=== PATIENT | female | born 2000 | race Caucasian/White ===

== ENCOUNTER 2022-11-03 18:40 | Emergency (ER) | payer BC ==
[2022-11-03] MEDS ORDERED: Ketorolac 60 MG/2 ML SDV IM ONE (18:54)
== END 2022-11-03 19:40 | disposition home or self-care (01) ==
LOC: LB.ED 18:40
DX: S86.911A Strain of unspecified muscle(s) and tendon(s) at lower leg level, right leg, initial encounter (principal); W18.30XA Fall on same level, unspecified, initial encounter; Y93.64 Activity, baseball
CPT/HCPCS: 73560-RT; 96372; 99283; J1885

== ENCOUNTER 2024-01-15 17:04 | Emergency (ER) | payer BC ==
[2024-01-15] MEDS ORDERED: Doxycycline 100 MG Cap ONE (18:00)
[2024-01-15 18:06] LABS: INFLUENZA A NAA NEGATIVE (NEGATIVE); INFLUENZA B NAA NEGATIVE (NEGATIVE); RESPIRATORY SYNCYTIAL VIR NAA NEGATIVE (NEGATIVE)
[2024-01-15 18:07] LABS: CORONAVIRUS COVID-19 NAA NEGATIVE (NEGATIVE)
[2024-01-15] MEDS: Doxycycline 100 MG Cap PO SCH (18:24)
== END 2024-01-15 18:25 | disposition home or self-care (01) ==
LOC: LB.ED 17:04
DX: J02.9 Acute pharyngitis, unspecified (principal); Z79.899 Other long term (current) drug therapy
CPT/HCPCS: 0241U; 87651-QW; 99283; A9270-GY